=== PATIENT | female | born 2000 | race Caucasian/White ===

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

== ENCOUNTER 2021-04-25 13:21 | Emergency (ER) | payer SELFPAY | END 2021-04-25 17:11 | disposition home or self-care (01) | LOC: ERS 13:21 | DX: J06.9 Acute upper respiratory infection, unspecified (principal); R07.89 Other chest pain | CPT/HCPCS: 93005 ==